=== PATIENT | female | born 1935 | race African-American/Black ===

== ENCOUNTER 2018-06-30 11:15 | Emergency (ER) | payer MEDICARE, OTHER ==
[~2018-06-30] VITALS: Ht 162.6 cm; Wt 70.0 kg
[2018-06-30 13:40] VITALS: BP 143/70
== END 2018-06-30 13:53 | disposition home or self-care (01) ==
LOC: ER 11:38
DX: R51 Headache (principal); M25.512 Pain in left shoulder; F41.9 Anxiety disorder, unspecified; I10 Essential (primary) hypertension; E78.00 Pure hypercholesterolemia, unspecified; W18.39XA Other fall on same level, initial encounter; Y93.89 Activity, other specified; Y92.89 Other specified places as the place of occurrence of the external cause; Y99.8 Other external cause status
CPT/HCPCS: 70450; 70486; 99284